=== PATIENT | male | born 1975 | race Caucasian/White ===

== ENCOUNTER 2017-04-12 09:12 | Outpatient (CLI) | payer MEDICARE ==
[2017-04-12] VITALS (7 sets, daily range): BP systolic 116–132; BP diastolic 72–97; PULSE 60–92
[~2017-04-12] VITALS: Ht 175.3 cm; Wt 81.8 kg
== END 2017-04-12 11:52 | disposition home or self-care (01) ==
LOC: COL.RAD 09:12
DX: M79.5 Residual foreign body in soft tissue (principal); N13.30 Unspecified hydronephrosis; G82.20 Paraplegia, unspecified
CPT/HCPCS: Q9967